=== PATIENT | male | born 1990 | race Two or more races ===

== ENCOUNTER 2023-10-26 10:20 | Emergency (ER) | payer SELFPAY | END 2023-10-26 11:58 | disposition home or self-care (01) | LOC: MW.ED 10:20 | DX: S20.312A Abrasion of left front wall of thorax, initial encounter (principal); L08.9 Local infection of the skin and subcutaneous tissue, unspecified; Z75.8 Other problems related to medical facilities and other health care; Z79.899 Other long term (current) drug therapy; W01.0XXA Fall on same level from slipping, tripping and stumbling without subsequent striking against object, initial encounter | CPT/HCPCS: 71101-26-LT; 71101-LT; 99283 ==